=== PATIENT | male | born 1995 | race American Indian/Alaskan Native ===

== ENCOUNTER 2019-02-04 12:50 | Emergency (ER) | payer SELFPAY ==
[2019-02-04 13:53] VITALS: BP 118/70
--- NOTE | 2019-02-04 13:55 | Emergency Department Report ---
Chief Complaint: Urogenital-Male Stated Complaint: POSS STD Time Seen by Provider: 02/04/19 13:51 - HPI History of Present Illness: This is a 24-year-old male well in appearance with no signs of distress presents to the ED for STD check. Patient stated that his partner called and said has STD. Patient stated he is asymptotic. Denies penile discharge, testicular pain, or swelling, urinary urgency, frequency, dysuria, fever, chills, headache, nausea, vomiting, chest pain or shortness of breathe. - ROS Review of Systems: STI screening, denies symptoms - Exam Vital Signs: Vital Signs 02/04/19 13:51 Temperature 98.5 F Pulse Rate 89 Respiratory 16 Rate Blood Pressure 118/70 [Left] O2 Sat by Pulse 100 Oximetry Physical Exam: GENERAL APPEARANCE: The patient is a 24-year-old well-developed, well-nourished male in no acute distress. CHEST: Symmetric. Nontender to palpation. LUNGS: Breath sounds are equal and clear bilaterally. No wheezes, rhonchi, or rales. HEART: Regular rate and rhythm with normal S1 and S2. No murmurs, gallops, or rubs. ABDOMEN: Soft, flat, and benign. No mass, tenderness, guarding, or rebound. No organomegaly or hernia. Bowel sounds are present. No CVA tenderness or flank mass. MUSCULOSKELETAL: Negative spinal tenderness. Gait is coordinated and smooth. EXTREMITIES: No cyanosis, clubbing, or edema. PSYCHIATRIC: The patient is awake, alert, and oriented x3. Recent and remote memory is intact. Appropriate mood and affect. SKIN: No rash. Warm, dry, and well perfused. Good turgor. MSE screening note: Focused history and physical exam performed. Due to findings the following was ordered: ED Medical Decision Making - Medical Decision Making Patient is stable and was examined by me. No acute signs of distress noted. Patient denies symptoms. His partner informed him they where diagnosed with an STD. This is a non-emergent complaint. Patient given list of health departments and clinics for follow up. Instructed to follow up with them for full STI screening. Patient agree to discharge treatment plan of care. No further questions noted by the patient. ED Disposition for MSE Clinical Impression: Feared complaint without diagnosis Disposition: DC-01 TO HOME OR SELFCARE Is pt being admited?: No Does the pt Need Aspirin: No Condition: Stable Instructions: Safe Sex (ED), Sexually Transmitted Diseases (ED) Additional Instructions: Follow up with the health department or primary care doctor for full STD s creening. Referrals: FLOYD ARNDT MD [Primary Care Provider] - 3-5 Days [facility] [Outside] - 3-5 Days [facility] [Outside] - 3-5 Days [facility] [Outside] - 3-5 Days [facility] [Outside] - 3-5 Days Time of Disposition: 13:54
== END 2019-02-04 14:00 | disposition home or self-care (01) ==
LOC: ED 12:50
DX: Z71.1 Person with feared health complaint in whom no diagnosis is made (principal)